=== PATIENT | female | born 1950 | race Hispanic/Latino ===

== ENCOUNTER 2020-11-01 16:46 | Emergency (ER) | payer SELFPAY ==
[~2020-11-01] VITALS: Ht 165.1 cm; Wt 79.4 kg
[2020-11-01] MEDS ORDERED: CLINDAMYCIN HC150 MG PO (18:23)
[2020-11-01 18:47] VITALS: BP 121/78
== END 2020-11-01 18:50 | disposition home or self-care (01) ==
LOC: ER 17:10
DX: L02.512 Cutaneous abscess of left hand (principal)
CPT/HCPCS: 99283